=== PATIENT | female | born 1975 | race Two or more races ===

== ENCOUNTER 2017-12-23 15:13 | Emergency (ER) | payer OTHER ==
[~2017-12-23] VITALS: Ht 170.2 cm; Wt 69.4 kg
[2017-12-23 15:42] VITALS: Ht 170.2 cm; Wt 69.4 kg
[2017-12-23 19:07] LABS: BASOPHIL % 0.2 % (0-2); PLATELET COUNT 292 x10^3mcL (130-400); RED CELL DISTRIBUTION WIDTH 13.2 % (11.5-14.5)
[2017-12-23 19:28] LABS: microscopic required? YES; urine erythrocyte 2+ (NEGATIVE)
[2017-12-23 19:36] LABS: CARBON DIOXIDE 24.2 mmol/L (21-32); CHLORIDE SERUM 102 mmol/L (98-107); GFR1 > 60 mL/min; GLUCOSE SERUM 98 mg/dL (74-106); POTASSIUM SERUM 3.4 mmol/L (3.5-5.1); SODIUM SERUM 137 mmol/L (136-145)
[2017-12-23 19:40] LABS: ALKALINE PHOSPHATASE 90 U/L (46-116); ALT/SGPT 17 U/L (14-59); AST/SGOT 13 U/L (15-37); BILIRUBIN TOTAL 0.35 mg/dL (0.20-1.00); LIPASE 88 IU/L (73-393); TOTAL PROTEIN, SERUM 7.4 g/dL (6.4-8.2)
[2017-12-23 19:41] LABS: ALBUMIN 2.8 g/dL (3.4-5.0)
[2017-12-23 23:33] VITALS: BP 109/64
== END 2017-12-23 23:54 | disposition home or self-care (01) ==
LOC: ED 15:13
PROVIDERS: Emergency Medicine
DX: N12 Tubulo-interstitial nephritis, not specified as acute or chronic (principal)
CPT/HCPCS: 85378; J0696